=== PATIENT | male | born 1975 | race Hispanic/Latino ===

== ENCOUNTER 2018-04-04 23:12 | Emergency (ER) | payer BC ==
[2018-04-04] MEDS ORDERED: Ondansetron ODT 4 MG TAB ONE (23:26)
[2018-04-04] MEDS ORDERED: Famotidine 20 MG TAB ONE (23:27)
[2018-04-04] MEDS ORDERED: diphenhydrAMINE 25 MG CAP ONE (23:36)
[2018-04-04] MEDS ORDERED: Lidocaine Viscous Sol 2% 15 ml UD Cup ONE (23:36)
[2018-04-04] MEDS ORDERED: Mag-Al Plus 1200 MG/1200 MG/120 MG/30 ML UDCUP ONE (23:36)
== END 2018-04-05 00:10 | disposition home or self-care (01) ==
LOC: BURERS 23:12
DX: H10.409 Unspecified chronic conjunctivitis, unspecified eye (principal)
CPT/HCPCS: 99283; Q0162; Q0163